=== PATIENT | female | born 1975 | race Caucasian/White ===

== ENCOUNTER → 2017-01-02 | Day surgery (SDC) | payer OTHER ==
--- NOTE | 2017-01-03 15:17 | PATH ---
Surgical Pathology Report Patient Name: PRANAV ORR [facility]. Rec. #: [id number] /Age/Gender: 1975 (Age: 41) / F Account: [id number] Location: [facility] Taken: 01/02/2017 Received: 01/02/2017 Reported: 01/03/2017 Physicians: Marlena Soares M.D. Specimen(s) Received A: RIGHT BREAST CORE BIOPSY 8:00 5-6 CMFN B: RIGHT BREAST CORE BIOPSY 9:00 1 CMFN Clinical History US: suspicious Final Diagnosis A. BREAST, SITE 1, 8:00, 5-6 CM FROM NIPPLE, US GUIDED CORE BIOPSY: NO TISSUE IDENTIFIED (SEE COMMENT). Comment: No tissue was identified within the specimen container. The case was discussed with Dr. Us on 01/03/17. B. 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 Comment: Immunohistochemical stains for p63, SMM-HC and ER performed and interpreted [facility] on block B1 show the following: p63 and SMM-HC highlight preserved myoepithelial cells; ER shows incomplete reactivity. These results are supportive of the interpretation above. Electronically Signed Maximiliano Bianchi M.D. Gross Description A. Received is a formalin filled container labeled "Site 1 right breast biopsy 8:00, 5-6 cmfn" There is no specimen identified within the container. There is no cassette submitted. B. Received in formalin labeled "Site 2 right breast biopsy 9:00, 1 cmfn" are 7 tatum-yellow, cylindrical portions of fibroadipose tissue ranging from 0.3-1.6 cm in length and averaging 0.2 cm in diameter. The specimen is submitted in toto in one cassette. Time to formalin fixation: 2 minutes Total formalin fixation time: Approximately 8 hours saudi/01/02/2017
== END | disposition home or self-care (01) ==
LOC: FRADUS-SUR 12:43
PROVIDERS: ATTEND Surgery
PROC: 0HBT3ZX Excision of Right Breast, Percutaneous Approach, Diagnostic (ICD-10-PCS; principal; 2017-01-02)
DX: N63 Unspecified lump in breast (principal); D24.1 Benign neoplasm of right breast; N60.81 Other benign mammary dysplasias of right breast
CPT/HCPCS: 19083; 19084; 87899; 88305-TC; 88341-TC; 88342-TC; A4648; G0206-TC

== ENCOUNTER 2020-07-20 05:15 | Day surgery (SDC) | payer OTHER ==
[2020-07-17 12:45] VITALS: BMI 28.3
[2020-07-20 14:21] VITALS: TEMP 97.4
[2020-07-20] MEDS ORDERED: ACETAMINOPHEN 325 MG TABLET (FP) ONE (14:29)
[2020-07-20 16:56] VITALS: BP 120/70; PULSE 64
--- NOTE | 2020-07-24 11:10 | PATH ---
Surgical Pathology Report Patient Name: PRANAV ORR [facility]. Rec. #: [id number] /Age/Gender: 1975 (Age: 45) / F Account: [id number] Location: RADIOLOGY INTER Taken: 07/20/2020 Received: 07/20/2020 Reported: 07/24/2020 Physicians: Marlena Mosher M.D. Specimen(s) Received LIVER BIOPSY Clinical History 45 year old female with history of SLE and hypothyroidism now with abnormal LFTs Final Diagnosis LIVER, ULTRASOUND GUIDED CORE BIOPSY: CHRONIC, NON-SUPPURATIVE GRANULOMATOUS DESTRUCTIVE CHOLANGITIS, CONSISTENT WITH PRIMARY BILARY CHOLANGITIS (PBC). PATCHY STEATOSIS(<5%). TRICHROME STAIN SHOWS AT LEAST PERIPORTAL FIBROSIS WITH FIBROUS SEPTA AND FOCAL BRIDGING FIBROSIS. RETICULIN STAIN SHOWS AN INTACT SINUSOIDAL ARCHITECTURE. IRON STAIN IS NEGATIVE FOR SIDEROSIS. PAS AND PAS WITH DIASTASE STAINS ARE NEGATIVE FOR [id number] GLOBULES. NEGATIVE FOR CHOLESTASIS OR MALIGNANCY. SEE COMENT. Comment: The biopsy contains only 9 portal tracts and is therefore limited for evaluation. The patient is noted to have a positive antimitochondrial antibody. The biopsy shows portal tracts with mixed chronic inflammation and granulomatous destructive cholangitis (florid duct lesions) with foci of interface and lobular inflammatory activity. These findings are consistent with a diagnosis of primary biliary cholangitis (PBC). Trichrome stain shows periportal fibrosis with fibrous septa and focal bridging fibrosis (METAVIR F2-3). However, accurate staging of fibrosis is precluded by the limited number of portal tracts in this sample. This case was sent to Dr. Maxine Johnson, GI and liver specialist, from [facility], [place], [place], the diagnosis above reflects her opinion ([id number]). See consultation report for additional details. Report faxed to Dr. Martines on 07/23/20. Electronically Signed Faby Saenz M.D. Gross Description Received in formalin labeled "liver tissue," are 4 tatum, cylindrical portions of soft tissue ranging from 0.3-1.2 cm in length and averaging 0.1 cm in diameter. The specimens are submitted in toto in one cassette. /07/20/202007/20/2020
== END 2020-07-20 16:30 | disposition home or self-care (01) ==
LOC: JRADIR 05:15
PROVIDERS: ATTEND Internal Medicine
PROC: 0FB03ZX Excision of Liver, Percutaneous Approach, Diagnostic (ICD-10-PCS; principal; 2020-07-20)
DX: K74.3 Primary biliary cirrhosis (principal); K76.0 Fatty (change of) liver, not elsewhere classified
CPT/HCPCS: 76942-TC; 84703; 87899; 88305-TC; 88313-TC

== ENCOUNTER 2022-05-06 21:18 | Emergency (ER) | payer OTHER ==
[2022-05-06 21:43] VITALS: BMI 29.6
[2022-05-06] MEDS ORDERED: SODIUM CHLORIDE 1,000 ML IV STA (22:43)
[2022-05-06] MEDS ORDERED: ONDANSETRON 4 MG/2 ML VIAL IVPUSH ONE (22:43)
[2022-05-06 23:32] LABS: BASO % 0.3 % (0-2.0); EOS % 0.3 % (0-4.5); HEMATOCRIT 38.1 % (32.4-45.2); HEMOGLOBIN 13.3 GM/dL (10.7-15.3); MCH 33.4 pg (25.7-33.7); MCHC 34.9 g/dl (32.0-36.0); MEAN CELL VOLUME 95.5 fl (80-96); MEAN PLT VOLUME 6.9 fl (7.5-11.1); MONO % 5.7 % (3.8-10.2); NEUT % 74.7 % (42.8-82.8); PLATELET COUNT 283 10^3/uL (134-434); RBC 3.99 M/mm3 (3.60-5.2); RDW 13.1 % (11.6-15.6); WHITE BLOOD COUNT 3.9 K/mm3 (4.0-10.0)
[2022-05-06] MEDS ORDERED: ONDANSETRON 4 MG/2 ML VIAL ONE (23:41)
[2022-05-06 23:50] LABS: CHLORIDE 106 mmol/L (98-107); SODIUM 139 mmol/L (136-145)
[2022-05-06 23:52] LABS: CALCIUM 9.1 mg/dL (8.5-10.1)
[2022-05-06 23:53] LABS: ALBUMIN 3.8 g/dl (3.4-5.0); ANION GAP 8 MMOL/L (8-16); BLOOD UREA NITROGEN 15.2 mg/dL (7-18); CO2 24 mmol/L (21-32); GLUCOSE,RANDOM 104 mg/dL (74-106); LIPASE 64 U/L (73-393)
[2022-05-06 23:56] LABS: CREATININE 0.7 mg/dL (0.55-1.3); SGOT/AST 30 U/L (15-37); SGPT/ALT 38 U/L (13-61)
[2022-05-06 23:58] LABS: BILIRUBIN,TOTAL 0.5 mg/dL (0.2-1)
[2022-05-06 23:59] LABS: ALK PHOS 215 U/L (45-117)
[2022-05-07 03:45] LABS: HCG,QUALITATIVE URINE Negative
[2022-05-07 04:20] LABS: URINE APPEARANCE CLEAR; URINE BILIRUBIN NEGATIVE (NEGATIVE); URINE COLOR YELLOW; URINE GLUCOSE (UA) NEGATIVE (NEGATIVE); URINE KETONE 15 mg/dl (NEGATIVE); URINE NITRITE NEGATIVE (NEGATIVE); URINE PROTEIN NEGATIVE (NEGATIVE); URINE UROBILINOGEN 0.2 mg/dL (0.2-1.0)
[2022-05-07 04:21] LABS: EPI CELLS 4.1 /uL (0-25.1); HYALINE CASTS 0.12 /uL (0-3.1); URINE BACTERIA 10926.2 /uL (0-1359); URINE LEUK ESTERASE NEGATIVE (NEGATIVE); URINE WBC 9.1 /uL (0-25.8)
[2022-05-07 05:07] VITALS: BP 124/76; PULSE 78; RESP 18; TEMP 98
== END 2022-05-07 05:05 | disposition home or self-care (01) ==
LOC: JER 21:18
PROC: 3E033GC Introduction of Other Therapeutic Substance into Peripheral Vein, Percutaneous Approach (ICD-10-PCS; principal; 2022-05-06)
PROC: 3E0337Z Introduction of Electrolytic and Water Balance Substance into Peripheral Vein, Percutaneous Approach (ICD-10-PCS; 2022-05-06)
DX: R11.10 Vomiting, unspecified (principal); R10.9 Unspecified abdominal pain
CPT/HCPCS: 0241U-QW; 36415; 74177-TC; 80053; 81003; 83605; 83690; 84484; 84702; 84703; 85025; 87086; 87186; 93005; 93010; 99285-25; Q9967